=== PATIENT | male | born 1950 | race Caucasian/White ===

== ENCOUNTER 2021-06-07 23:51 | Inpatient (IN) | payer MEDICARE ==
[~2021-06-07] VITALS: Ht 182.9 cm; Wt 95.3 kg
[2021-06-08 00:31] LABS: HEMOGLOBIN 13.9 gm/dl (14.0-17.5); RED BLOOD COUNT 4.5 M/UL (4.20-5.50)
[2021-06-08 00:56] LABS: BUN/CREATININE RATIO 10 (0-10)
[2021-06-08] MEDS ORDERED: ATORVASTATIN CA40 MG PO (12:20)
[2021-06-08] MEDS ORDERED: FUROSEMIDE20 MG PO (12:20)
[2021-06-08] MEDS ORDERED: LOSARTAN POTASS50 MG PO (12:23)
[2021-06-08] MEDS ORDERED: GLUCOPHAGE 500500 MG PO (12:23)
[2021-06-08] MEDS ORDERED: PROTONIX40 MG PO (12:23)
[2021-06-08] MEDS ORDERED: COREG 25MG TAB25 MG PO (12:24)
[2021-06-08] MEDS ORDERED: CHLORPROMAZINE25 MG PO (12:25)
[2021-06-08] MEDS ORDERED: MIRTAZAPINE30 MG PO (12:26)
[2021-06-08] MEDS ORDERED: LEVOTHYROXINE125 MCG PO (12:26)
[2021-06-08] MEDS ORDERED: LEVALBUTER1.25 MG/3 INH (12:27)
--- NOTE | 2021-06-08 12:38 | NUR ---
pt unable to communicate his medications he is alert and oriented just says he's too stressed to deal with it.
[2021-06-09 07:53] LABS: HEMOGLOBIN 13.5 gm/dl (14.0-17.5); RED BLOOD COUNT 4.58 M/UL (4.20-5.50)
[2021-06-09 08:04] LABS: WHITE BLOOD COUNT 5.3 K/UL (4.5-11.0)
[2021-06-09 08:27] LABS: BUN/CREATININE RATIO 11 (0-10)
[2021-06-10 08:42] LABS: BUN/CREATININE RATIO 13 (0-10)
[2021-06-11 07:56] LABS: HEMOGLOBIN 13.6 gm/dl (14.0-17.5); RED BLOOD COUNT 4.64 M/UL (4.20-5.50); WHITE BLOOD COUNT 5.2 K/UL (4.5-11.0)
[2021-06-11 08:31] LABS: BUN/CREATININE RATIO 10 (0-10)
[2021-06-13] MEDS ORDERED: ISOSORBIDE MONO30 MG PO (15:11)
[2021-06-13] MEDS ORDERED: NICOTINE PATCH1 EAC2 TOP (15:11)
[2021-06-13] MEDS ORDERED: ASPIRIN EC81 MG PO (15:11)
[2021-06-13] MEDS ORDERED: CARVEDILOL12.5 MG PO (15:11)
[2021-06-13] MEDS ORDERED: LISINOPRIL10 MG PO (15:11)
[2021-06-13 18:30] LABS: HEMOGLOBIN 14.3 gm/dl (14.0-17.5); RED BLOOD COUNT 4.91 M/UL (4.20-5.50)
[2021-06-13 18:47] LABS: BUN/CREATININE RATIO 16 (0-10)
[2021-06-15 06:48] LABS: HEMOGLOBIN 13.7 gm/dl (14.0-17.5); RED BLOOD COUNT 4.51 M/UL (4.20-5.50); WHITE BLOOD COUNT 5.3 K/UL (4.5-11.0)
[2021-06-15 07:43] LABS: BUN/CREATININE RATIO 20 (0-10)
[2021-06-17 06:02] LABS: RED BLOOD COUNT 4.32 M/UL (4.20-5.50); WHITE BLOOD COUNT 6.4 K/UL (4.5-11.0)
[2021-06-17 06:18] LABS: BUN/CREATININE RATIO 17 (0-10)
[2021-06-18 07:28] LABS: BUN/CREATININE RATIO 16 (0-10)
[2021-06-19 05:18] LABS: HEMOGLOBIN 12.6 gm/dl (14.0-17.5); RED BLOOD COUNT 4.32 M/UL (4.20-5.50)
[2021-06-19 05:32] LABS: WHITE BLOOD COUNT 8.7 K/UL (4.5-11.0)
[2021-06-19 05:52] LABS: BUN/CREATININE RATIO 14 (0-10)
[2021-06-20 06:52] LABS: HEMOGLOBIN 12.6 gm/dl (14.0-17.5); RED BLOOD COUNT 4.36 M/UL (4.20-5.50); WHITE BLOOD COUNT 7.8 K/UL (4.5-11.0)
[2021-06-20 07:09] LABS: BUN/CREATININE RATIO 12 (0-10)
[2021-06-21 05:50] LABS: RED BLOOD COUNT 4.34 M/UL (4.20-5.50); WHITE BLOOD COUNT 8.3 K/UL (4.5-11.0)
[2021-06-21 06:54] LABS: BUN/CREATININE RATIO 15 (0-10)
[2021-06-22 06:54] LABS: HEMOGLOBIN 13.7 gm/dl (14.0-17.5); RED BLOOD COUNT 4.53 M/UL (4.20-5.50); WHITE BLOOD COUNT 9.3 K/UL (4.5-11.0)
[2021-06-22 09:24] LABS: BUN/CREATININE RATIO 14 (0-10)
[2021-06-23 08:17] LABS: HEMOGLOBIN 12.2 gm/dl (14.0-17.5); RED BLOOD COUNT 4.16 M/UL (4.20-5.50); WHITE BLOOD COUNT 7.3 K/UL (4.5-11.0)
[2021-06-23 08:38] LABS: BUN/CREATININE RATIO 13 (0-10)
[2021-06-26 07:10] LABS: HEMOGLOBIN 12.8 gm/dl (14.0-17.5); RED BLOOD COUNT 4.26 M/UL (4.20-5.50); WHITE BLOOD COUNT 7.7 K/UL (4.5-11.0)
[2021-06-26 07:56] LABS: BUN/CREATININE RATIO 14 (0-10)
== END 2021-06-26 18:06 | DRG 880 ==
LOC: ER1 23:51 → M/S 06-08 06:44 → CDU 06-08 06:44 → M/S 06-08 09:18
PROVIDERS: Family Medicine; Internal Medicine; Physician Assistant; ADMIT Internal Medicine
DX: F41.9 Anxiety disorder, unspecified (principal); R45.851 Suicidal ideations; N39.0 Urinary tract infection, site not specified; I50.22 Chronic systolic (congestive) heart failure; Z20.822 Contact with and (suspected) exposure to COVID-19; B95.62 Methicillin resistant Staphylococcus aureus infection as the cause of diseases classified elsewhere; I11.0 Hypertensive heart disease with heart failure; I25.5 Ischemic cardiomyopathy; R74.01 Elevation of levels of liver transaminase levels; F39 Unspecified mood [affective] disorder; R07.89 Other chest pain; E11.65 Type 2 diabetes mellitus with hyperglycemia; F32.A Depression, unspecified; E66.9 Obesity, unspecified; E87.6 Hypokalemia; I25.10 Atherosclerotic heart disease of native coronary artery without angina pectoris; F17.210 Nicotine dependence, cigarettes, uncomplicated; M54.50 Low back pain, unspecified; E78.5 Hyperlipidemia, unspecified; G89.29 Other chronic pain; E03.9 Hypothyroidism, unspecified; Z95.5 Presence of coronary angioplasty implant and graft; Z71.6 Tobacco abuse counseling; Z90.49 Acquired absence of other specified parts of digestive tract; Z98.890 Other specified postprocedural states; Z91.14 Patient's other noncompliance with medication regimen; Z79.82 Long term (current) use of aspirin; Z68.28 Body mass index [BMI] 28.0-28.9, adult
CPT/HCPCS: ECHO; 36415; 71045; 78452; 80048; 80053; 80061; 80202; 81001; 82550; 82553; 82962; 83036; 83735; 83874; 84439; 84443; 84484; 84550; 85025; 85027; 85610; 86140; 87040; 87077; 87086; 87186; 93005; 93017; 93306; 96372; 96374; 96376; 99285; A9502; G0378; J0696; J1650; J2270; J2405; J2550; J2785; J3370; J7050; J7070; Q0177; Q9967; U0002